=== PATIENT | female | born 1995 | race Native Hawaiian/Other Pacific Islander ===

== ENCOUNTER 2019-10-14 08:00 | Outpatient (CLI) | payer OTHER ==
[2019-10-14 19:38] LABS: CANDIDA GROUP DNA NEGATIVE (NEGATIVE); CANDIDA KRUSEI DNA NEGATIVE (NEGATIVE); TRICHOMONAS VAGINALIS DNA NEGATIVE (NEGATIVE)
[2019-10-14 23:01] LABS: TRICHOMONAS VAGINALIS DNA NEGATIVE (NEGATIVE)
== END 2019-10-14 23:59 | disposition home or self-care (01) ==
LOC: LAB.R 08:00
PROVIDERS: ATTEND Nurse Practitioner Obstetrics & Gynecology
DX: Z11.3 Encounter for screening for infections with a predominantly sexual mode of transmission (principal); N76.0 Acute vaginitis
CPT/HCPCS: 87491; 87591; 87661; 87801

== ENCOUNTER 2019-12-24 17:02 | Emergency (ER) | payer OTHER ==
[2019-12-24] MEDS ORDERED: SODIUM CHLORIDE 0.9% 1,000 ML IV ONE (17:35)
[2019-12-24] MEDS ORDERED: MECLIZINE 12.5 MG TABLET PO STA (17:35)
--- NOTE | 2019-12-24 17:37 | ED Physician Documentation ---
History of Present Illness - Stated complaint Stated Complaint: DIZZY - Chief complaint Chief Complaint: General - History obtained from History obtained from: Patient - History of Present Illness Timing: Other (6 months) Pain level max: 0 Pain level now: 0 - Additonal information Additional information: Patient is a 24-year-old female who states that she was diagnosed with vertigo by her doctor approximately 6 months ago. She states that they keep refilling vertigo medication for her. She has not had any neuroimaging performed. Has not been sent to vestibular rehab. And has not seen ENT. Worse with movement and better with rest. She states that the symptoms are worsening today. Review of Systems Constitutional: denies: Fever, Chills Ears: denies: Ear pain Nose: denies: Rhinorrhea / runny nose, Congestion Throat: denies: Sore throat Cardiac: denies: Palpitations Respiratory: denies: Cough GI: reports: Nausea, Vomiting. denies: Abdominal Pain, Diarrhea : denies: Dysuria, Frequency, Hesitancy, Now EGA Skin: denies: Rash PD PAST MEDICAL HISTORY - Past Medical History Past Medical History: Yes Other Past Medical History: vertigo - Present Medications Home Medications: Ambulatory Orders Medication Instructions Recorded Confirmed Meclizine HCl 25 mg PO Q6H PRN #30 tablet 12/24/19 - Allergies Allergies/Adverse Reactions: Allergies Allergy/AdvReac Type Severity Reaction Status Date / Time latex Allergy Rash Verified 12/24/19 17:07 - Living Situation Living Situation: reports: With family Living Arrangement: reports: At home - Social History Does the pt smoke?: No Does the pt have substance abuse?: No - Family History Family history: reports: Non contributory PD ED PE NORMAL - Vitals Vital signs reviewed: Yes - General General: Alert and oriented X 3, No acute distress, Well developed/nourished - HEENT HEENT: PERRL, Ears normal, Moist mucous membranes, Pharynx benign - Neck Neck: Supple, no meningeal sign, No adenopathy - Cardiac Cardiac: RRR, Strong equal pulses - Respiratory Respiratory: No respiratory distress, Clear bilaterally - Abdomen Abdomen: Soft, Non tender, Non distended - Derm Derm: Warm and dry, No rash - Extremities Extremities: No edema - Neuro Neuro: Alert and oriented X 3, brass and wind instrument repairer 2-12 intact, No motor deficit, No sensory deficit, Normal speech, Other (Horizontal nystagmus, fast component to the left. Unable to tolerate Hallpike testing well.) - Psych Psych: Normal mood, Normal affect Results - Vitals Vitals: Vital Signs - 24 hr 12/24/19 17:07 Temperature 37 C Heart Rate 99 Respiratory 18 Rate Blood Pressure 146/80 H O2 Saturation 99 Oxygen O2 Source Room air - Labs Labs: Laboratory Tests 12/24/19 12/24/19 17:42 17:42 WBC 9.3 RBC 4.30 Hgb 12.1 Hct 36.5 L MCV 84.9 MCH 28.1 MCHC 33.2 RDW 13.0 Plt Count 408 MPV 9.3 Neut # (Auto) Not Reportable Lymph # (Auto) Not Reportable [place] # (Auto) Not Reportable Eos # (Auto) Not Reportable Baso # (Auto) Not Reportable Absolute Nucleated RBC Not Reportable Total Counted 100 Band Neuts % (Manual) 0 Abnorm Lymph % (Manual) 0 Nucleated RBC % Not Reportable Neutrophils # (Manual) 6.0 Lymphocytes # (Manual) 2.4 Monocytes # (Manual) 0.8 Eosinophils # (Manual) 0.1 Basophils # (Manual) 0.0 Differential Comment MANUAL DIFFERENTIAL WBC Morphology NORMAL APPEARANCE Platelet Estimate NORMAL (130-450,000) Platelet Morphology NORMAL APPEARANCE RBC Morph Micro Appear NORMAL APPEARANCE Sodium 135 Potassium 3.5 Chloride 100 L Carbon Dioxide 27 Anion Gap 8.0 BUN 17 Creatinine 0.8 Estimated GFR (MDRD) 87 L Glucose 115 H Calcium 9.0 Total Bilirubin 1.3 H AST 52 H ALT 48 Alkaline Phosphatase 56 Total Protein 7.4 Albumin 4.3 Globulin 3.1 Albumin/Globulin Ratio 1.4 Lipase 32 PD MEDICAL DECISION MAKING - ED course Complexity details: reviewed results, re-evaluated patient, considered differential, d/w patient ED course: 24-year-old female feels better after meclizine. Seems that if she is having 6 months worth of vertiginous symptoms that she should receive a further work-up with her doctor. Recommend that she have an MRI of her brain and likely referral to ENT or at least vestibular rehab. We will prescribe meclizine for home. Patient tolerating p.o. without difficulty. Patient has had what sounds like Hallpike testing in the past with positive results. Patient counseled regarding signs and symptoms for which I believe and urgent re-evaluation would be necessary. Patient with good understanding of and agreement to plan and is comfortable going home at this time This document was made in part using voice recognition software. While efforts are made to proofread this document, sound alike and grammatical errors may occur. Departure - Departure Disposition: 01 Home, Self Care Clinical Impression: Vertigo Condition: Good Instructions: ED Dizziness [facility] Follow-Up: Kelly Steve PA-C [Primary Care Provider] - Within 1 week Prescriptions: Meclizine HCl 25 mg PO Q6H PRN #30 tablet PRN Reason: Vertigo Comments: The cause of your symptoms is unclear. You should have an MRI of your brain performed with your doctor to exclude things such as a tumor. You may also benefit from a referral to ENT and/or a referral to vestibular rehab. Return if you worsen.
[2019-12-24 17:46] LABS: BASOPHILS % (AUTO) 0.5 %; EOSINOPHILS % (AUTO) 1.4 %; HGB - HEMOGLOBIN 12.1 g/dL (12.0-16.0); MEAN CORPUSCULAR HEMOGLOBIN 28.1 pg (27.0-31.0); MEAN CORPUSCULAR HGB CONC 33.2 g/dL (32.0-36.0); MEAN CORPUSCULAR VOLUME 84.9 fL (81.0-99.0); MEAN PLATELET VOLUME 9.3 fL (7.9-10.8); MONOCYTES % (AUTO) 7.5 %; NEUTROPHILS % (AUTO) 61.3 %; PLT - PLATELET COUNT 408 10^3/uL (130-450); WHITE BLOOD COUNT 9.3 x10^3/uL (4.8-10.8)
[2019-12-24 17:49] LABS: ABNORMAL LYMPHS % (MANUAL) 0 %; BAND NEUTROPHILS % (MANUAL) 0 %
[2019-12-24 17:59] LABS: ALBUMIN 4.3 g/dL (3.2-5.5); ALBUMIN/GLOBULIN RATIO 1.4 (1.0-2.2); BILIRUBIN,TOTAL 1.3 mg/dL (0.2-1.0); CREATININE 0.8 mg/dL (0.4-1.0); TOTAL PROTEIN 7.4 g/dL (6.7-8.2)
[2019-12-24] MEDS ORDERED: ONDANSETRON ODT 4 MG TABLET TL STA (18:20)
[2019-12-24 18:37] LABS: DIFFERENTIAL COMMENT MANUAL DIFFERENTIAL; EOSINOPHILS # (MANUAL) 0.1 10^3/uL (0-0.7); LYMPHOCYTES # (MANUAL) 2.4 10^3/uL (1.5-3.5); LYMPHOCYTES % (MANUAL) 26 %; MONOCYTES # (MANUAL) 0.8 10^3/uL (0.0-1.0); PLATELET ESTIMATE, MANUAL NORMAL (130-450,000) (NORMAL); PLATELET MORPHOLOGY NORMAL APPEARANCE (NORMAL); RBC MORPHOLOGY (MULTIPLE) NORMAL APPEARANCE (NORMAL)
[2019-12-24 18:54] VITALS: BP 132/78
== END 2019-12-24 18:53 | disposition home or self-care (01) ==
LOC: ED 17:02
DX: R42 Dizziness and giddiness (principal)
CPT/HCPCS: 36415; 80053; 83690; 85025; 96360; 99283; 99284; A9270; Q0162

== ENCOUNTER 2020-01-03 08:00 | Outpatient (CLI) | payer OTHER ==
[2020-01-03 21:35] LABS: TRICHOMONAS VAGINALIS DNA NEGATIVE (NEGATIVE)
== END 2020-01-03 23:59 | disposition home or self-care (01) ==
LOC: LAB.R 08:00
PROVIDERS: ATTEND Obstetrics & Gynecology
DX: Z11.3 Encounter for screening for infections with a predominantly sexual mode of transmission (principal)
CPT/HCPCS: 87491; 87591; 87661

== ENCOUNTER 2020-01-03 15:04 | Outpatient (CLI) | payer OTHER ==
[2020-01-04 11:33] LABS: HIV AG/AB 4TH GEN NON-REACTIVE (NON-REACTIVE)
[2020-01-04 11:34] LABS: HEPATITIS B SURFACE ANTIGEN NON-REACTIVE (NON-REACTIVE)
== END 2020-01-03 15:05 | disposition home or self-care (01) ==
LOC: LAB 15:04
PROVIDERS: ATTEND Obstetrics & Gynecology
DX: Z11.3 Encounter for screening for infections with a predominantly sexual mode of transmission (principal)
CPT/HCPCS: 36415; 81599; 86592; 87340; 87389

== ENCOUNTER 2020-04-22 14:22 | Emergency (ER) | payer OTHER ==
[2020-04-22 14:44] LABS: BASOPHILS # (AUTO) 0.1 10^3/uL (0.0-0.1); BASOPHILS % (AUTO) 0.6 %; EOSINOPHILS # (AUTO) 0.1 10^3/uL (0.0-0.7); HGB - HEMOGLOBIN 13.1 g/dL (12.0-16.0); LYMPHOCYTES # (AUTO) 2.9 10^3/uL (1.5-3.5); LYMPHOCYTES % (AUTO) 33.2 %; MEAN CORPUSCULAR HEMOGLOBIN 28.4 pg (27.0-31.0); MEAN CORPUSCULAR HGB CONC 33.6 g/dL (32.0-36.0); MEAN CORPUSCULAR VOLUME 84.6 fL (81.0-99.0); MEAN PLATELET VOLUME 9.1 fL (7.9-10.8); MONOCYTES # (AUTO) 0.5 10^3/uL (0.0-1.0); MONOCYTES % (AUTO) 6.2 %; NEUTROPHILS # (AUTO) 5.2 10^3/uL (1.5-6.6); NEUTROPHILS % (AUTO) 58.8 %; PLT - PLATELET COUNT 440 10^3/uL (130-450); RED BLOOD COUNT 4.61 10^6/uL (4.20-5.40); RED CELL DISTRIBUTION WIDTH 13.2 % (12.0-15.0); WHITE BLOOD COUNT 8.8 x10^3/uL (4.8-10.8)
[2020-04-22 14:57] LABS: ALBUMIN 4.4 g/dL (3.2-5.5); ALBUMIN/GLOBULIN RATIO 1.3 (1.0-2.2); BILIRUBIN,TOTAL 1.4 mg/dL (0.2-1.0); CALCIUM 9.3 mg/dL (8.5-10.3); CREATININE 0.8 mg/dL (0.4-1.0); TOTAL PROTEIN 7.7 g/dL (6.7-8.2)
--- NOTE | 2020-04-22 15:17 | ED Physician Documentation ---
PD HPI SYNCOPE - Stated complaint Stated Complaint: LIGHTHEADED/NAUSEA - Chief complaint Chief Complaint: General - History obtained from History obtained from: Patient - History of Present Illness Witnessed: Unwitnessed Timing - onset: How many days ago (2-3 days of feeling nauseated, less appetite and lightheaded. [place] near syncopal with standing up earlier today. No vomitin g.) Duration: Seconds Preceding symptoms: Headache (mild headache with standing/walking today.), Nausea / vomiting (nauseated for the past 2-3 days.), Light headed. No: Palpitations, Dyspnea, Abdominal pain Contributing factors: Recent med change (started propranolol for nightmares last week, with Rx on and took it Monday and Monday nights. Forgot to take it Monday and Monday. Started feeling nauseated on Monday and Monday (today is Monday).), Decreased PO intake (for 2-3 days), Just stood up Injury occurred: No: Fell, Head injury Review of Systems Constitutional: reports: Myalgias. denies: Fever, Chills Nose: denies: Rhinorrhea / runny nose, Congestion Throat: denies: Sore throat Respiratory: denies: Cough GI: reports: Nausea, Vomiting (couple times 2 days ago, but with just nausea since.). denies: Abdominal Pain, Constipation, Diarrhea : reports: Dysuria. denies: Frequency, Discharge, Missed period Skin: denies: Rash Neurologic: denies: Altered mental status, Head injury PD PAST MEDICAL HISTORY - Past Medical History Cardiovascular: None Respiratory: None Neuro: Other (nightmares) Endocrine/Autoimmune: None - Present Medications Home Medications: Ambulatory Orders Medication Instructions Recorded Confirmed Meclizine HCl 25 mg PO Q6H PRN #30 tablet 12/24/19 Cephalexin [Keflex] 500 mg PO TID #21 capsule 04/22/20 Ondansetron Odt [Zofran] 4 mg TL Q6H PRN #10 tablet 04/22/20 - Allergies Allergies/Adverse Reactions: Allergies Allergy/AdvReac Type Severity Reaction Status Date / Time latex Allergy Rash Verified 12/24/19 17:07 - Social History Does the pt smoke?: No Smoking Status: Never smoker Does the pt have substance abuse?: No PD ED PE NORMAL - Vitals Vital signs reviewed: Yes - General General: Alert and oriented X 3, No acute distress, Well developed/nourished - HEENT HEENT: Ears normal, Pharynx benign. No: Moist mucous membranes - Neck Neck: Supple, no meningeal sign - Cardiac Cardiac: RRR, No murmur - Respiratory Respiratory: Clear bilaterally - Abdomen Abdomen: Soft, Non tender - Back Back: No CVA TTP - Derm Derm: Normal color, Warm and dry - Extremities Extremities: No deformity, No tenderness to palpate, Normal ROM s pain - Neuro Neuro: Alert and oriented X 3, No motor deficit, Normal speech Results - Vitals Vitals: Vital Signs - 24 hr 04/22/20 04/22/20 14:26 17:00 Temperature 36.9 C 37 C Heart Rate 100 102 H Respiratory 18 17 Rate Blood Pressure 151/99 H 131/86 H O2 Saturation 97 99 Oxygen O2 Source Room air - Labs Labs: Laboratory Tests 04/22/20 04/22/20 04/22/20 14:38 14:38 14:38 WBC 8.8 RBC 4.61 Hgb 13.1 Hct 39.0 MCV 84.6 MCH 28.4 MCHC 33.6 RDW 13.2 Plt Count 440 MPV 9.1 Neut # (Auto) 5.2 Lymph # (Auto) 2.9 [place] # (Auto) 0.5 Eos # (Auto) 0.1 Baso # (Auto) 0.1 Absolute Nucleated RBC 0.00 Nucleated RBC % 0.0 Sodium 135 Potassium 3.8 Chloride 99 L Carbon Dioxide 28 Anion Gap 8.0 BUN 12 Creatinine 0.8 Estimated GFR (MDRD) 87 L Glucose 150 H POC Whole Bld Glucose Calcium 9.3 Magnesium Total Bilirubin 1.4 H AST 24 ALT 37 Alkaline Phosphatase 57 Troponin I High Sens 2.4 Total Protein 7.7 Albumin 4.4 Globulin 3.3 Albumin/Globulin Ratio 1.3 Lipase 29 TSH Urine Color Urine Clarity Urine pH Ur Specific [place] Urine Protein Urine Glucose (UA) Urine Ketones Urine Occult Blood Urine Nitrite Urine Bilirubin Urine Urobilinogen Ur Leukocyte Esterase Urine RBC Urine WBC Ur Squamous Epith Cells Urine Bacteria Ur Microscopic Review Urine Culture Comments Urine HCG, Qual 04/22/20 04/22/20 04/22/20 14:38 14:38 15:00 WBC RBC Hgb Hct MCV MCH MCHC RDW Plt Count MPV Neut # (Auto) Lymph # (Auto) George # (Auto) Eos # (Auto) Baso # (Auto) Absolute Nucleated RBC Nucleated RBC % Sodium Potassium Chloride Carbon Dioxide Anion Gap BUN Creatinine Estimated GFR (MDRD) Glucose POC Whole Bld Glucose Calcium Magnesium 2.4 Total Bilirubin AST ALT Alkaline Phosphatase Troponin I High Sens Total Protein Albumin Globulin Albumin/Globulin Ratio Lipase TSH 1.42 Urine Color DARK YELLOW Urine Clarity HAZY Urine pH 8.0 H Ur Specific [place] 1.020 Urine Protein NEGATIVE Urine Glucose (UA) NEGATIVE Urine Ketones NEGATIVE Urine Occult Blood NEGATIVE Urine Nitrite POSITIVE H Urine Bilirubin NEGATIVE Urine Urobilinogen 0.2 (NORMAL) Ur Leukocyte Esterase NEGATIVE Urine RBC 0-5 Urine WBC 6-10 H Ur Squamous Epith Cells FEW Squamous Urine Bacteria Many H Ur Microscopic Review INDICATED Urine Culture Comments INDICATED Urine HCG, Qual NEGATIVE 04/22/20 16:28 WBC RBC Hgb Hct MCV MCH MCHC RDW Plt Count MPV Neut # (Auto) Lymph # (Auto) George # (Auto) Eos # (Auto) Baso # (Auto) Absolute Nucleated RBC Nucleated RBC % Sodium Potassium Chloride Carbon Dioxide Anion Gap BUN Creatinine Estimated GFR (MDRD) Glucose POC Whole Bld Glucose 131 H Calcium Magnesium Total Bilirubin AST ALT Alkaline Phosphatase Troponin I High Sens Total Protein Albumin Globulin Albumin/Globulin Ratio Lipase TSH Urine Color Urine Clarity Urine pH Ur Specific [place] Urine Protein Urine Glucose (UA) Urine Ketones Urine Occult Blood Urine Nitrite Urine Bilirubin Urine Urobilinogen Ur Leukocyte Esterase Urine RBC Urine WBC Ur Squamous Epith Cells Urine Bacteria Ur Microscopic Review Urine Culture Comments Urine HCG, Qual PD MEDICAL DECISION MAKING - ED course Complexity details: considered differential (I don't think the new med is causing symptoms, given the couple days not taking it before symptoms. She has UTI and I think that is more the cause of the symptoms of nausea and vomiting, leading to underhydration and now the lightheaded today.), d/w patient Departure - Departure Disposition: 01 Home, Self Care Clinical Impression: Lightheaded, Dehydration, Nausea UTI (urinary tract infection) Qualifiers: Urinary tract infection type: acute cystitis Hematuria presence: without hematuria Qualified Code(s): N30.00 - Acute cystitis without hematuria Condition: Stable Record reviewed to determine appropriate education?: Yes Instructions: ED UTI Cystitis Female, ED Nausea Vomiting Follow-Up: Kelly Steve PA-C [Primary Care Provider] - Prescriptions: Cephalexin [Keflex] 500 mg PO TID #21 capsule Ondansetron Odt [Zofran] 4 mg TL Q6H PRN #10 tablet PRN Reason: Nausea / Vomiting Comments: Your blood pressure and heart rate are good. If anything your heart rate is slightly elevated which could correlate more with the under hydration or illness. You do have signs of a urinary tract infection on your urine test. Your blood tests otherwise look okay. I think your symptoms are likely from the urinary tract infection combined with some under hydration related to the nausea and less appetite. Cephalexin antibiotic for the urinary tract infection. Ondansetron as needed for nausea. Try to be well-hydrated over the next couple of days. I presume your lightheadedness will improve with all that over the next couple of days. Presume you feel better over the next 2 to 3 days, I would try resuming the propranolol at that point and see if you do okay without any symptoms. I do not think your current symptoms were related to the propranolol but I would hold off on it for couple days until you are feeling better anyway. Return if not improved in the next few days or if worsening. Forms: Activity restrictions Discharge Date/Time: 04/22/20 17:00
[2020-04-22 15:18] LABS: BILIRUBIN,URINE NEGATIVE (NEGATIVE); GLUCOSE, URINE (UA) NEGATIVE (NEGATIVE); KETONES,URINE (UA) NEGATIVE (NEGATIVE); LEUKOCYTE ESTERASE, URINE NEGATIVE (NEGATIVE); NITRITE,URINE POSITIVE (NEGATIVE); OCCULT BLOOD,URINE NEGATIVE (NEGATIVE); PROTEIN,URINE NEGATIVE (NEGATIVE); UROBILINOGEN,URINE 0.2 (NORMAL) E.U./dL (NORMAL)
[2020-04-22 15:34] LABS: CLARITY,URINE HAZY (CLEAR); HCG UR QUAL NEGATIVE
[2020-04-22 15:44] LABS: BACTERIA,URINE Many /HPF (None Seen); RBC,URINE 0-5 /HPF (0-5); SQUAMOUS EPITHELIAL CELL,UR FEW Squamous (<= Few)
[2020-04-22] MEDS ORDERED: ONDANSETRON ODT 4 MG TABLET TL STA (15:50)
[2020-04-22] MEDS ORDERED: FAMOTIDINE 20 MG TABLET PO STA (15:51)
[2020-04-22] MEDS ORDERED: cephALEXin 250 MG CAPSULE PO STA (15:53)
[2020-04-22 17:00] VITALS: BP 131/86
== END 2020-04-22 17:00 | disposition home or self-care (01) ==
LOC: ED 14:22
DX: E86.0 Dehydration (principal); N30.00 Acute cystitis without hematuria; R42 Dizziness and giddiness; R11.0 Nausea; R00.0 Tachycardia, unspecified
CPT/HCPCS: 36415; 81001; 81025; 83690; 83735; 84484; 87086; 87181; 93005; 99284; A9270; Q0162; 80053; 81003; 84443; 85025

== ENCOUNTER 2020-09-22 11:14 | Outpatient (CLI) | payer OTHER ==
[2020-09-23 07:21] LABS: HIV AG/AB 4TH GEN NON-REACTIVE (NON-REACTIVE)
[2020-09-24 13:31] LABS: HEPATITIS B SURFACE ANTIGEN NON-REACTIVE (NON-REACTIVE); HEPATITIS C ANTIBODY NON-REACTIVE (NON-REACTIVE)
[2020-09-24 15:32] LABS: HSV 1 IGG TYPE SPECIFIC AB <0.90 index
== END 2020-09-22 11:15 | disposition home or self-care (01) ==
LOC: LAB 11:14
PROVIDERS: ATTEND Nurse Practitioner Obstetrics & Gynecology
DX: Z11.3 Encounter for screening for infections with a predominantly sexual mode of transmission (principal); R30.0 Dysuria
CPT/HCPCS: 36415; 81599; 86592; 86695; 86696; 86803; 87077; 87086; 87181; 87340; 87389; 87491; 87591

== ENCOUNTER 2020-10-08 13:42 | Outpatient (CLI) | payer SELFPAY | END 2020-10-08 13:43 | disposition home or self-care (01) | LOC: COV 13:42 | PROVIDERS: ATTEND Family Medicine | DX: R05 Cough (principal); Z20.828 Contact with and (suspected) exposure to other viral communicable diseases; R06.02 Shortness of breath; R09.81 Nasal congestion; J02.9 Acute pharyngitis, unspecified; M79.10 Myalgia, unspecified site ==

== ENCOUNTER 2020-10-23 14:41 | Emergency (ER) | payer MEDICAID, OTHER ==
[2020-10-23] MEDS ORDERED: HYDROmorphone 1 MG/ML CARPUJECT IVP STA (14:54)
[2020-10-23] MEDS ORDERED: ONDANSETRON 4 MG/2 ML VIAL IVP STA (14:54)
--- NOTE | 2020-10-23 14:55 | ED Physician Documentation ---
PD HPI ABD PAIN - Stated complaint Stated Complaint: FEMALE ,NAUSEA,BACK PX - Chief complaint Chief Complaint: Abd Pain - History obtained from History obtained from: Patient - Additional information Additional information: 25-year-old woman, otherwise healthy except for depression, no history of abdominal surgeries. She has had mid low back pain for about a week which was not too bad but developed progressive nausea and this morning now has severe right lower quadrant pain starting around 5 AM. Last sexual activity was about 5 days ago. She is on her menses, timing and flow seem normal. Review of Systems Ten Systems: 10 systems reviewed and negative Constitutional: denies: Fever, Chills Throat: denies: Sore throat Cardiac: denies: Chest pain / pressure, Palpitations Respiratory: denies: Dyspnea, Cough PD PAST MEDICAL HISTORY - Past Medical History Cardiovascular: None Respiratory: None Neuro: Other (nightmares) Endocrine/Autoimmune: None - Past Surgical History Past Surgical History: No - Present Medications Home Medications: Ambulatory Orders Medication Instructions Recorded Confirmed Ciprofloxacin HCl [Cipro] 500 mg PO BID #20 tablet 10/23/20 HYDROcod/ACETAM 5/325 [[place] 5/325] 1 - 2 tab PO Q6H PRN #15 tablet 10/23/20 Ondansetron Odt [Zofran] 4 mg TL Q6H PRN #10 tablet 10/23/20 - Allergies Allergies/Adverse Reactions: Allergies Allergy/AdvReac Type Severity Reaction Status Date / Time latex Allergy Rash Verified 10/23/20 14:46 - Social History Does the pt smoke?: No Smoking Status: Never smoker Does the pt drink ETOH?: Yes Does the pt have substance abuse?: No - Immunizations Immunizations are current?: Yes - POLST Patient has POLST: No PD ED PE NORMAL - Vitals Vital signs reviewed: Yes - General General: Alert and oriented X 3, Other (She appears uncomfortable, prefers to stand oversitting) - HEENT HEENT: PERRL, EOMI - Neck Neck: Supple, no meningeal sign, No bony TTP - Cardiac Cardiac: RRR, No murmur - Respiratory Respiratory: No respiratory distress, Clear bilaterally - Abdomen Abdomen: Normal bowel sounds, Soft, Other (Mild right flank tenderness, more significant right lower quadrant tenderness without surgical signs.) - Back Back: No spinal TTP - Derm Derm: Normal color, Warm and dry - Neuro Neuro: Alert and oriented X 3, Normal speech Results - Vitals Vitals: Vital Signs - 24 hr 10/23/20 10/23/20 14:44 16:40 Temperature 36.5 C Heart Rate 79 76 Respiratory 16 16 Rate Blood Pressure 134/86 H 129/76 O2 Saturation 100 99 Oxygen O2 Source Room air - Labs Labs: Laboratory Tests 10/23/20 10/23/20 10/23/20 15:14 15:14 15:15 WBC 11.6 H RBC 4.55 Hgb 12.6 Hct 37.8 MCV 83.1 MCH 27.7 MCHC 33.3 RDW 13.1 Plt Count 423 MPV 9.9 Neut # (Auto) 8.4 H Lymph # (Auto) 2.4 [place] # (Auto) 0.6 Eos # (Auto) 0.1 Baso # (Auto) 0.1 Absolute Nucleated RBC 0.00 Nucleated RBC % 0.0 Sodium 135 Potassium 4.1 Chloride 101 Carbon Dioxide 23 Anion Gap 11.0 BUN 9 Creatinine 0.7 Estimated GFR (MDRD) 100 Glucose 123 H Calcium 9.1 Total Bilirubin 1.4 H AST 27 ALT 31 Alkaline Phosphatase 52 Total Protein 7.6 Albumin 4.6 Globulin 3.0 Albumin/Globulin Ratio 1.5 Lipase 21 L Urine Color YELLOW Urine Clarity HAZY Urine pH 5.5 Ur Specific [place] >=1.030 H Urine Protein TRACE Urine Glucose (UA) NEGATIVE Urine Ketones NEGATIVE Urine Occult Blood LARGE H Urine Nitrite POSITIVE H Urine Bilirubin NEGATIVE Urine Urobilinogen 0.2 (NORMAL) Ur Leukocyte Esterase SMALL H Urine RBC 11-25 H Urine WBC 11-25 H Ur Squamous Epith Cells FEW Squamous Urine Bacteria Moderate H Urine Mucus Few Strands Ur Microscopic Review INDICATED Urine Culture Comments INDICATED Urine HCG, Qual NEGATIVE PD MEDICAL DECISION MAKING - ED course ED course: 25-year-old woman with urinary symptoms, flank and abdominal pain. Feeling better after pain meds but developed more nausea. CT showed no other acute issue. Given Rocephin here. Departure - Departure Disposition: 01 Home, Self Care Clinical Impression: Pyelonephritis Abdominal pain Qualifiers: Abdominal location: right lower quadrant Qualified Code(s): R10.31 - Right lower quadrant pain Condition: Good Record reviewed to determine appropriate education?: Yes Instructions: Pyelonephritis Dc Prescriptions: Ciprofloxacin HCl [Cipro] 500 mg PO BID #20 tablet HYDROcod/ACETAM 5/325 [[place] 5/325] 1 - 2 tab PO Q6H PRN #15 tablet PRN Reason: Pain Ondansetron Odt [Zofran] 4 mg TL Q6H PRN #10 tablet PRN Reason: Nausea / Vomiting Comments: You were seen today for symptoms that turned out to be related to a kidney in fection, the antibiotics should start improving her symptoms a lot over the next 48 hours or so. Return if worsening or if unable to keep down the medications. We will culture the urine and if in a resistant organism is identified we will call you to change antibiotics in approximately 2 days. Follow-up with your doctor next week. Discharge Date/Time: 10/23/20 16:40
[2020-10-23 15:27] LABS: BASOPHILS # (AUTO) 0.1 10^3/uL (0.0-0.1); BASOPHILS % (AUTO) 0.4 %; EOSINOPHILS # (AUTO) 0.1 10^3/uL (0.0-0.7); EOSINOPHILS % (AUTO) 1.2 %; HGB - HEMOGLOBIN 12.6 g/dL (12.0-16.0); LYMPHOCYTES # (AUTO) 2.4 10^3/uL (1.5-3.5); LYMPHOCYTES % (AUTO) 20.6 %; MEAN CORPUSCULAR HEMOGLOBIN 27.7 pg (27.0-31.0); MEAN CORPUSCULAR HGB CONC 33.3 g/dL (32.0-36.0); MEAN CORPUSCULAR VOLUME 83.1 fL (81.0-99.0); MEAN PLATELET VOLUME 9.9 fL (7.9-10.8); MONOCYTES # (AUTO) 0.6 10^3/uL (0.0-1.0); NEUTROPHILS # (AUTO) 8.4 10^3/uL (1.5-6.6); NEUTROPHILS % (AUTO) 72.3 %; PLT - PLATELET COUNT 423 10^3/uL (130-450); RED BLOOD COUNT 4.55 10^6/uL (4.20-5.40); RED CELL DISTRIBUTION WIDTH 13.1 % (12.0-15.0); WHITE BLOOD COUNT 11.6 x10^3/uL (4.8-10.8)
[2020-10-23 15:33] LABS: BILIRUBIN,URINE NEGATIVE (NEGATIVE); GLUCOSE, URINE (UA) NEGATIVE (NEGATIVE); KETONES,URINE (UA) NEGATIVE (NEGATIVE); LEUKOCYTE ESTERASE, URINE SMALL (NEGATIVE); NITRITE,URINE POSITIVE (NEGATIVE); OCCULT BLOOD,URINE LARGE (NEGATIVE); PH,URINE 5.5 PH (5.0-7.5); PROTEIN,URINE TRACE mg/dL (NEGATIVE); UROBILINOGEN,URINE 0.2 (NORMAL) E.U./dL (NORMAL)
[2020-10-23 15:34] LABS: CLARITY,URINE HAZY (CLEAR)
[2020-10-23 15:37] LABS: HCG UR QUAL NEGATIVE
[2020-10-23 15:43] LABS: ALBUMIN 4.6 g/dL (3.2-5.5); ALBUMIN/GLOBULIN RATIO 1.5 (1.0-2.2); BILIRUBIN,TOTAL 1.4 mg/dL (0.2-1.0); CALCIUM 9.1 mg/dL (8.5-10.3); CREATININE 0.7 mg/dL (0.4-1.0); TOTAL PROTEIN 7.6 g/dL (6.7-8.2)
[2020-10-23 15:47] LABS: SQUAMOUS EPITHELIAL CELL,UR FEW Squamous (<= Few)
[2020-10-23 15:48] LABS: BACTERIA,URINE Moderate /HPF (None Seen); MUCUS,URINE Few Strands
[2020-10-23] MEDS ORDERED: cefTRIAXone 1 GM in SODIUM CHLORIDE 0.9% MINIBAG 100 ML IV STA (16:01)
[2020-10-23] MEDS ORDERED: METOCLOPRAMIDE 10 MG/2 ML VIAL IVP STA (16:03)
--- NOTE | 2020-10-23 16:11 | CT Report ---
PROCEDURE: Abdomen/Pelvis WO INDICATIONS: R abd pain TECHNIQUE: Noncontrast 5 mm thick sections acquired from the diaphragms to the symphysis. 5 mm coronal and sagi ttal reformats were then performed. For radiation dose reduction, the following was used: automated exposure control, adjustment of mA and/or kV according to patient size. COMPARISON: None. FINDINGS: Image quality: Excellent. ABDOMEN: Lung bases: Lung bases are clear. Heart size is normal. Solid organs: Liver and spleen are normal in size. Gallbladder is unremarkable. Pancreas is normal in contours. No adrenal nodules. Kidneys are normal in size, without hydronephrosis or nephrolithi asis. Peritoneum and bowel: Unenhanced bowel loops demonstrate normal wall thickness and caliber. Normal appendix, (05/16). No free fluid or air. Nodes and vessels: No retroperitoneal or mesenteric adenopathy by size criteria. Aorta and inferior vena cava are normal in caliber. Miscellaneous: No ventral hernias. PELVIS: Genitourinary: Bladder is decompressed. Normal uterus. No free fluid. Miscellaneous: No inguinal hernias or adenopathy. Bones: No suspicious bony lesions. No vertebral body compression fractures. IMPRESSION: 1. No acute abnormal evaluate identified. No kidney stones. No hydronephrosis. Normal appendix. 2. Hepatic steatosis. Reviewed by: Francisco Lemos MD on 10/23/2020 4:09 PM [facility] Approved by: Francisco Lemos MD on 10/23/2020 4:09 PM [facility] Station ID: [id number]
[2020-10-23] MEDS ORDERED: cefTRIAXone 1 GM VIAL ONE (16:18)
[2020-10-23 16:40] VITALS: BP 129/76
== END 2020-10-23 16:40 | disposition home or self-care (01) ==
LOC: ED 14:41
DX: N12 Tubulo-interstitial nephritis, not specified as acute or chronic (principal)
CPT/HCPCS: 36415; 74176; 80053; 81001; 81025; 83690; 85025; 87086; 87181; 96374; 96375; 99285; J1170; J2765; 81003

== ENCOUNTER 2020-10-25 05:51 | Observation (INO) | payer MEDICAID ==
[2020-10-25 06:36] LABS: BASOPHILS % (AUTO) 0.6 %; EOSINOPHILS # (AUTO) 0.2 10^3/uL (0.0-0.7); EOSINOPHILS % (AUTO) 2.3 %; HGB - HEMOGLOBIN 11.8 g/dL (12.0-16.0); LYMPHOCYTES # (AUTO) 2.5 10^3/uL (1.5-3.5); LYMPHOCYTES % (AUTO) 37.2 %; MEAN CORPUSCULAR HEMOGLOBIN 27.7 pg (27.0-31.0); MEAN PLATELET VOLUME 9.3 fL (7.9-10.8); MONOCYTES # (AUTO) 0.5 10^3/uL (0.0-1.0); MONOCYTES % (AUTO) 7.2 %; NEUTROPHILS # (AUTO) 3.6 10^3/uL (1.5-6.6); NEUTROPHILS % (AUTO) 52.4 %; PLT - PLATELET COUNT 383 10^3/uL (130-450); RED BLOOD COUNT 4.26 10^6/uL (4.20-5.40); RED CELL DISTRIBUTION WIDTH 12.9 % (12.0-15.0); WHITE BLOOD COUNT 6.8 x10^3/uL (4.8-10.8)
[2020-10-25 06:51] LABS: ALBUMIN 4.4 g/dL (3.2-5.5); ALBUMIN/GLOBULIN RATIO 1.5 (1.0-2.2); CREATININE 0.8 mg/dL (0.4-1.0); TOTAL PROTEIN 7.4 g/dL (6.7-8.2)
[2020-10-25] MEDS ORDERED: METOCLOPRAMIDE 10 MG/2 ML VIAL IVP STA (07:37)
[2020-10-25] MEDS ORDERED: LACTATED RINGERS 1,000 ML IV ONE (07:38)
[2020-10-25] MEDS ORDERED: CIPROFLOXACIN 400 MG/200 ML 400 MG/200 ML BAG IV STA (07:41)
[2020-10-25 07:44] LABS: BILIRUBIN,URINE NEGATIVE (NEGATIVE); GLUCOSE, URINE (UA) NEGATIVE (NEGATIVE); KETONES,URINE (UA) NEGATIVE (NEGATIVE); LEUKOCYTE ESTERASE, URINE NEGATIVE (NEGATIVE); NITRITE,URINE NEGATIVE (NEGATIVE); OCCULT BLOOD,URINE SMALL (NEGATIVE); PROTEIN,URINE NEGATIVE (NEGATIVE); UROBILINOGEN,URINE 0.2 (NORMAL) E.U./dL (NORMAL)
[2020-10-25 07:45] LABS: CLARITY,URINE CLEAR (CLEAR)
[2020-10-25 07:45] LABS: HCG,QUALITATIVE BLOOD NEGATIVE
[2020-10-25] MEDS ORDERED: cefTRIAXone 1 GM in SODIUM CHLORIDE 0.9% MINIBAG 100 ML IV STA (07:46)
[2020-10-25 07:54] LABS: BACTERIA,URINE Few /HPF (None Seen); MUCUS,URINE Marked Strands; RBC,URINE 0-5 /HPF (0-5); SQUAMOUS EPITHELIAL CELL,UR MANY Squamous (<= Few)
--- NOTE | 2020-10-25 08:03 | ED Physician Documentation ---
PD HPI ABD PAIN - Stated complaint Stated Complaint: VOMITING - Chief complaint Chief Complaint: Abd Pain - History obtained from History obtained from: Patient - Additional information Additional information: 25-year-old girl with recent ED visit for pyelonephritis 2 days ago presents with persistent nausea vomiting and inability to take her pills. She has had 1 dose of ciprofloxacin after getting an IV dose of Rocephin in the ED on 124. She says she has no new symptoms but is feeling too ill to take antibiotics/oral zofran. denies fevers at present. +mild nonradiating aching constant, gradual onset abdominal pain in suprapubic region radiating to BL back a/w nbnb n/v. +urinary sx. Review of Systems Ten Systems: 10 systems reviewed and negative Constitutional: denies: Fever, Chills GI: reports: Abdominal Pain, Nausea, Vomiting. denies: Diarrhea : reports: Dysuria, Frequency PD PAST MEDICAL HISTORY - Past Medical History Past Medical History: Yes Cardiovascular: None Respiratory: Asthma Neuro: Other Endocrine/Autoimmune: None GI: GERD CONFERENCE SERVICE COORDINATOR: None : None HEENT: None Psych: Depression, Anxiety, Bipolar disorder, Panic attacks Musculoskeletal: None Derm: Eczema - Past Surgical History Past Surgical History: No Ortho: Other - Present Medications Home Medications: Ambulatory Orders Medication Instructions Recorded Confirmed Ciprofloxacin HCl [Cipro] 500 mg PO BID #20 tablet 10/23/20 10/25/20 HYDROcod/ACETAM 5/325 [[place] 5/325] 1 - 2 tab PO Q6H PRN #15 tablet 10/23/20 10/25/20 Ondansetron Odt [Zofran] 4 mg TL Q6H PRN #10 tablet 10/23/20 10/25/20 - Allergies Allergies/Adverse Reactions: Allergies Allergy/AdvReac Type Severity Reaction Status Date / Time latex Allergy Rash Verified 10/23/20 14:46 - Social History Does the pt smoke?: No Smoking Status: Former smoker Does the pt drink ETOH?: Yes Does the pt have substance abuse?: No - Immunizations Immunizations are current?: Yes - POLST Patient has POLST: No PD ED PE NORMAL - Vitals Vital signs reviewed: Yes - General General: Alert and oriented X 3 - HEENT HEENT: Atraumatic, PERRL, EOMI - Neck Neck: Supple, no meningeal sign - Cardiac Cardiac: RRR - Respiratory Respiratory: No respiratory distress, Clear bilaterally - Abdomen Abdomen: Non tender, Non distended, Other (discomfort to suprapubic palpation) - Female Female : Deferred - Rectal Rectal: Deferred - Back Back: Other (BL CVA ttp) - Derm Derm: Normal color - Extremities Extremities: No deformity - Neuro Neuro: Alert and oriented X 3 - Psych Psych: Normal mood, Normal affect Results - Vitals Vitals: Vital Signs - 24 hr 10/25/20 10/25/20 06:08 07:34 Temperature 36.3 C L 37.3 C Heart Rate 71 55 L Respiratory 18 14 Rate Blood Pressure 118/67 121/77 O2 Saturation 98 99 Oxygen O2 Source Room air - Labs Labs: Laboratory Tests 10/25/20 10/25/20 10/25/20 06:30 06:30 06:30 WBC 6.8 RBC 4.26 Hgb 11.8 L Hct 35.8 L MCV 84.0 MCH 27.7 MCHC 33.0 RDW 12.9 Plt Count 383 MPV 9.3 Neut # (Auto) 3.6 Lymph # (Auto) 2.5 [place] # (Auto) 0.5 Eos # (Auto) 0.2 Baso # (Auto) 0.0 Absolute Nucleated RBC 0.00 Nucleated RBC % 0.0 Sodium 138 Potassium 4.0 Chloride 105 Carbon Dioxide 23 Anion Gap 10.0 BUN 12 Creatinine 0.8 Estimated GFR (MDRD) 86 L Glucose 102 H Calcium 9.0 Total Bilirubin 1.0 AST 20 ALT 26 Alkaline Phosphatase 47 Total Protein 7.4 Albumin 4.4 Globulin 3.0 Albumin/Globulin Ratio 1.5 Lipase 23 Serum HCG, Qual NEGATIVE Urine Color Urine Clarity Urine pH Ur Specific [place] Urine Protein Urine Glucose (UA) Urine Ketones Urine Occult Blood Urine Nitrite Urine Bilirubin Urine Urobilinogen Ur Leukocyte Esterase Urine RBC Urine WBC Ur Squamous Epith Cells Urine Bacteria Urine Mucus Ur Microscopic Review Urine Culture Comments 10/25/20 07:30 WBC RBC Hgb Hct MCV MCH MCHC RDW Plt Count MPV Neut # (Auto) Lymph # (Auto) [place] # (Auto) Eos # (Auto) Baso # (Auto) Absolute Nucleated RBC Nucleated RBC % Sodium Potassium Chloride Carbon Dioxide Anion Gap BUN Creatinine Estimated GFR (MDRD) Glucose Calcium Total Bilirubin AST ALT Alkaline Phosphatase Total Protein Albumin Globulin Albumin/Globulin Ratio Lipase Serum HCG, Qual Urine Color YELLOW Urine Clarity CLEAR Urine pH 5.0 Ur Specific [place] >=1.030 H Urine Protein NEGATIVE Urine Glucose (UA) NEGATIVE Urine Ketones NEGATIVE Urine Occult Blood SMALL H Urine Nitrite NEGATIVE Urine Bilirubin NEGATIVE Urine Urobilinogen 0.2 (NORMAL) Ur Leukocyte Esterase NEGATIVE Urine RBC 0-5 Urine WBC 0-3 Ur Squamous Epith Cells MANY Squamous H Urine Bacteria Few Urine Mucus Marked Strands Ur Microscopic Review INDICATED Urine Culture Comments NOT INDICATED PD MEDICAL DECISION MAKING - ED course Complexity details: reviewed results, re-evaluated patient, d/w patient ED course: 25yF with recent diagnosis of pyelo 2 days ago presents with persistent nausea/vomiting refractory to outpatient treatment. patient with drop in hb by one unit over two days (currently menstruating, also possibly dilutional given drop in other numbers as well). d/w hospitalist Dr. Cam who will admit, likely to observaton unit for iv abx. Departure - Departure Disposition: ED Place in Observation Clinical Impression: Pyelonephritis, Vomiting Condition: Good
[2020-10-25] MEDS ORDERED: PROCHLORPERAZINE 10 MG/2 ML VIAL IVP PRN (09:05)
[2020-10-25] MEDS: D5NS W/20 MEQ KCL 1,000 ML IV SCH ×2 (10:51→20:26)
[2020-10-25] MEDS: PANTOPRAZOLE 40 MG VIAL IVP SCH (10:51)
[2020-10-25] MEDS: SODIUM CHLORIDE FLUSH 0.9% 10 ML SYRINGE IVP PRN ×2 (10:59→11:00)
[2020-10-25] MEDS: HYDROmorphone 1 MG/ML CARPUJECT IVP PRN ×2 (11:50→17:56)
--- NOTE | 2020-10-25 12:10 | HISTORY & PHYSICAL EXAMINATION ---
DATE OF SERVICE: 10/25/2020 Physician: Aurelia Cannon MD HISTORY OF PRESENT ILLNESS: This is a 25-year-old female of indigenous descent who has a negative past medical history. She was seen by her PCP for UTI symptoms and was started on antibiotics, which she took for 2 days and had nausea and vomiting, and could not keep down the antibiotics and therefore presented back to the emergency room. She had undergone CT scanning done 2 days previously that did not show evidence of renal fat stranding to suggest pyelonephritis or any hydronephrosis or any stones. In the emergency room, she was given antiemetics, IV fluids, and the hospitalist team is being requested to place her in observation for managing her cystitis and Escherichia coli urinary tract infection with parenteral medications PAST MEDICAL HISTORY: Negative. ALLERGIES: CINNAMON and LATEX. MEDICATIONS: Prior to this admission were [place] 5/325 mg 1-2 tablets by mouth every 6 hours p.r.n. severe pain, Zofran sublingual every 6 hours p.r.n. nausea, and Cipro 500 mg twice daily. FAMILY HISTORY: No inherited diseases. SOCIAL HISTORY: She does not abuse alcohol. No smoking history. She is not . PHYSICAL EXAMINATION GENERAL: Obese, young white female. She is in [id number] distress from pain. VITAL SIGNS: Blood pressure 116/56, heart rate 58 in sinus rhythm. She is afebrile. Room air saturation of 99%. HEENT: Shows moist oral mucosa. NECK: No JVD. CHEST: Clear. HEART: Normal heart sounds. ABDOMEN: Normal bowel sounds. No tenderness. No guarding or rebound. She has pain in the suprapubic area to deep palpation and she has left flank pain. EXTREMITIES: No clubbing, cyanosis or edema. NEUROLOGIC: Grossly intact. LABORATORY DATA: Normal electrolytes. Normal BUN and creatinine. Lactic acid 1.3, magnesium 2.2. Normal liver tests. Serum hCG negative. White blood count 6.8, hemoglobin 11, and platelet count 383. Urinalysis shows high specific gravity of 1.03, small occult blood, and many squamous cells. The urine culture done from 2 days ago is growing Escherichia coli, which is pansensitive. IMPRESSION/DIAGNOSES 1. Nausea and vomiting. 2. E. coli urinary tract infection 3. Cystitis, acute 4. Morbid obesity, BMI 44.3 PLAN: Place the patient in Observation to start IV fluids, continue with IV ceftriaxone daily for treating this infection and continue with antiemetics as well as narcotic pain medications as needed. Start bowel rest with clear liquid diet because of the persistent nausea and vomiting, advance as tolerated. DEEP VENOUS THROMBOSIS PROPHYLAXIS: Not necessary as she is young and mobile and low risk for DVT. CODE STATUS: FULL CODE. ATTESTATION: Patient is expected to be discharged or transferred to another facility within 96 hours: Yes. cc: Kelly Steve PA-C TD: 10/25/2020 11:32 MTDD
--- NOTE | 2020-10-25 13:03 | PHARMACY PROGRESS NOTE ---
- Best Possible Medication History Admit Date and Time: 10/25/20 0852 Processed by: Pharmacy Medication History completed: Yes Patient Interview: Pt interview ONLY source Secondary Source(s): Physician records, Insurance records As the person ultimately responsible for medication therapy, providers are able to order a medication from an existing home medication list in [facility] via the "Reconcile Routine" prior to Confirmation of that medication by client application support engineer. Such practice is discouraged except when the physician, in their clinical judgment, deems that a medical need exists for a medication without regard to previous use.
[2020-10-25] MEDS: SODIUM CHLORIDE FLUSH 0.9% 10 ML SYRINGE IVP SCH (17:50)
[2020-10-25] MEDS: ONDANSETRON 4 MG/2 ML VIAL IVP PRN (17:56)
[2020-10-26] MEDS: SODIUM CHLORIDE FLUSH 0.9% 10 ML SYRINGE IVP SCH ×2 (01:39→09:32)
[2020-10-26] MEDS: D5NS W/20 MEQ KCL 1,000 ML IV SCH (04:06)
[2020-10-26] MEDS: HYDROmorphone 1 MG/ML CARPUJECT IVP PRN ×2 (05:10→12:02)
[2020-10-26] MEDS: ONDANSETRON 4 MG/2 ML VIAL IVP PRN ×2 (05:10→12:02)
[2020-10-26 05:29] LABS: BASOPHILS % (AUTO) 0.7 %; EOSINOPHILS # (AUTO) 0.2 10^3/uL (0.0-0.7); EOSINOPHILS % (AUTO) 3.5 %; HGB - HEMOGLOBIN 11.2 g/dL (12.0-16.0); LYMPHOCYTES # (AUTO) 2.3 10^3/uL (1.5-3.5); MEAN CORPUSCULAR HEMOGLOBIN 27.9 pg (27.0-31.0); MEAN CORPUSCULAR HGB CONC 32.7 g/dL (32.0-36.0); MEAN CORPUSCULAR VOLUME 85.1 fL (81.0-99.0); MEAN PLATELET VOLUME 9.8 fL (7.9-10.8); MONOCYTES # (AUTO) 0.4 10^3/uL (0.0-1.0); MONOCYTES % (AUTO) 6.7 %; NEUTROPHILS # (AUTO) 2.8 10^3/uL (1.5-6.6); NEUTROPHILS % (AUTO) 48.9 %; PLT - PLATELET COUNT 329 10^3/uL (130-450); RED BLOOD COUNT 4.02 10^6/uL (4.20-5.40); RED CELL DISTRIBUTION WIDTH 12.8 % (12.0-15.0); WHITE BLOOD COUNT 5.7 x10^3/uL (4.8-10.8)
[2020-10-26 05:37] LABS: CALCIUM 8.4 mg/dL (8.5-10.3); CREATININE 0.8 mg/dL (0.4-1.0)
[2020-10-26] MEDS: PANTOPRAZOLE 40 MG VIAL IVP SCH (06:02)
[2020-10-26] MEDS ORDERED: guaiFENesin 100 MG/5 ML UDC PO PRN (08:44)
[2020-10-26] MEDS ORDERED: cefTRIAXone 1 GM in SODIUM CHLORIDE 0.9% MINIBAG 100 ML IV SCH (09:00)
--- NOTE | 2020-10-26 09:35 | XRAY Report ---
PROCEDURE: Chest 1 View X-Ray INDICATIONS: Cough, sputum production, eval for infiltrate TECHNIQUE: One view of the chest was acquired. COMPARISON: None FINDINGS: Surgical changes and devices: None. Lungs and pleura: No pleural effusions or pneumothorax. Lungs are clear. Mediastinum: Mediastinal contours appear normal. Heart size is normal. Bones and chest wall: No suspicious bony lesions. Overlying soft tissues appear unremarkable. IMPRESSION: No acute process. Reviewed by: Gio Kate MD on 10/26/2020 9:33 AM [facility] Approved by: Gio Kate MD on 10/26/2020 9:33 AM [facility] Station ID: [id number]
--- NOTE | 2020-10-26 10:23 | Discharge Plan ---
Discharge Plan Problem Reviewed?: Yes Disposition: Home, Self Care Condition: Fair Prescriptions: Cephalexin [Keflex] 500 mg PO BID #10 capsule L. Acidophilus/L.bulgaricus [Lactobacillus Tablet] 1 each PO DAILY #5 tablet Diet: Soft Activity Restrictions: Activity as Tolerated Shower Restrictions: No Driving Restrictions: No Health Concerns: You were in the hospital to get IV fluids, IV medicine to control nausea, and to get IV antibiotics started to treat your E. coli urinary tract infection. You are being discharged to take 5 more days of antibiotic Keflex, which will also help with the bronchitis that you are developing. The chest x-ray showed no pneumonia. Your Covid test was negative. Probiotics have also been prescribed, to prevent diarrhea. Your new prescriptions were sent to your [facility] pharmacy in [place]. Stay well hydrated. Please advance your diet as tolerated. Use the tablets of antivomiting medicine that were previously prescribed, if you need. Plan of Treatment: As above. Care Goals: Improvement in symptoms and stabilization are the goals. Assessment: Patient understands and is agreeable with the plan. No Smoking: If you smoke, Please STOP! Call for help. Follow-up with: Kelly Steve PA-C [Primary Care Provider] -
[2020-10-26 11:34] LABS: C. PNEUMONIAE- RESP PCR PANEL NOT DETECTED
--- NOTE | 2020-10-26 11:44 | DISCHARGE SUMMARY ---
Discharge Summary Admit Date: 10/25/20 Discharge Date: 10/26/20 Discharging Provider: Dr Aurelia Cannon Primary Care Provider: BECKY Steve Code Status: Attempt Resuscitation Condition at Discharge: Fair Discharge Disposition: 01 Home, Self Care - HPI History of Present Illness: This is a 25-year-old female of indigenous descent with a negative past medical history. She was seen by her PCP for UTI symptoms and had an outpatient CT that showed no pyelonephritis. She was started on Cipro 500 mg twice daily and this caused her to have vomiting and she kept no antibiotics down or food down for 2 days. She came to the emergency room with complaints of pain suprapubically and persistent nausea and vomiting. Her labs showed a normal WBC and Lactic Acid level. Her outpatient urine culture was turning pos for E coli. She received IV fluids in the ER and was started on IV ceftriaxone and got iv antiemetics and is being placed in Observation status to manage nausea and vomiting, give her IV hydration and continue with parenteral antibiotics until her nausea and vomiting symptoms are controlled. - HOSPITAL COURSE Hospital Course: 12) E coli UTI The E coli was pansensitive. She received 2 doses of iv Ceftriaxone and was discharged to take 5 more days of p.o. Keflex and a Probiotic. 2) N/V She received iv antiemetics and was put on a clear liquid diet, then tolerated a pureed diet. She was discharged home with a prescription for sublingual Zofran to take if needed. She was advisd to advance her diet as tolerated at home. 3) Cystitis The CT abdpmen/pelvis had been done before this hospitalization and showed no hydronephrosis or fat stranding to suggest pyelonephritis. Her suprapubic pain improved slightly. She was advised to continue to convelesce and stay well hydrated at home after discharge. 4) Cough On the day of discharge, she complained of a cough, which was productive of yellow sputum. She had no fever and a normal WBC. A CXR was done and this was normal, without infiltrate. She also had a rapid [employer] Covid test done, and it was negative. A sputum sample had gram pos and gram neg on the gram stain and it was accepted for culture; the result is still pending. The reason for choosing Keflex, was to cover bronchitis organisms and her E coli in the urine. 5) Morbid obesity, BMI 44.3 As per Hx. Weight loss should be advised. - ALLERGIES Allergies/Adverse Reactions: Allergies Allergy/AdvReac Type Severity Reaction Status Date / Time cinnamon Allergy Anaphylaxis Verified 10/25/20 11:14 latex Allergy Rash Verified 10/23/20 14:46 - MEDICATIONS Home Medications: Ambulatory Orders Medication Instructions Recorded Confirmed HYDROcod/ACETAM 5/325 [[place] 5/325] 1 - 2 tab PO Q6H PRN #15 tablet 10/23/20 10/25/20 Ondansetron Odt [Zofran Odt] 4 mg TL Q6H PRN #10 tablet 10/23/20 10/25/20 Norelgestromin/Ethin.estradiol 1 patch TD .Q7D 10/25/20 10/25/20 [Xulane Patch] Cephalexin [Keflex] 500 mg PO BID #10 capsule 10/26/20 L. Acidophilus/L.bulgaricus 1 each PO DAILY #5 tablet 10/26/20 [Lactobacillus Tablet] - PHYSICAL EXAM AT DISCHARGE General Appearance: positive: No acute distress, Alert Eyes Bilateral: positive: Normal inspection, EOMI ENT: positive: ENT inspection nml, No signs of dehydration Neck: positive: Nml inspection, No JVD Respiratory: positive: No respiratory distress, Breath sounds nml Cardiovascular: positive: Regular rate & rhythm, No murmur Abdomen: positive: Non-tender, No distention, Other (Obese) Skin: positive: No rash, Warm, Dry Extremities: positive: Non-tender, No pedal edema Neurologic/Psychiatric: positive: Oriented x3, Motor nml - LABS Result Diagrams: 10/26/20 05:10 10/26/20 05:10 - DIAGNOSTIC IMAGING Diagnostic Imaging Results: Final report reviewed - FOLLOW UP Follow Up: See PCP in 5-10 days for hospital follow-up. - TIME SPENT Time Spent in Discharge (Minutes): 30
[2020-10-26 11:50] VITALS: BP 131/82
== END 2020-10-26 14:58 | disposition home or self-care (01) ==
LOC: ED 05:51 → MS2 08:52
PROVIDERS: ADMIT Internal Medicine; ATTEND Internal Medicine
DX: N30.90 Cystitis, unspecified without hematuria (principal); B96.20 Unspecified Escherichia coli [E. coli] as the cause of diseases classified elsewhere; R11.2 Nausea with vomiting, unspecified; T36.8X5A Adverse effect of other systemic antibiotics, initial encounter; R05 Cough; E66.01 Morbid (severe) obesity due to excess calories; Z68.41 Body mass index [BMI] 40.0-44.9, adult; Z20.828 Contact with and (suspected) exposure to other viral communicable diseases
CPT/HCPCS: 0202U; 36415; 71045; 80048; 80053; 81001; 83605; 83690; 83735; 84703; 85025; 87070; 87205; 93005; 96365; 96366; 96367; 96368; 96375; 96376; 99284; 99285; A9270; G0378; J1170; J2765; J7120; 81003; 81025; 87086